=== PATIENT | male | born 1960 | race Caucasian/White ===

== ENCOUNTER 2021-02-15 03:56 | Observation (INO) | payer SELFPAY ==
[2021-02-15] MEDS ORDERED: Dexamethasone 10 MG/ML SDV IM STA (04:32)
[2021-02-15] MEDS ORDERED: Albuterol/Ipratropium 3.0-0.5 MG/3 ML Neb Soln NEB ONE ×3 (04:32→07:59)
--- NOTE | 2021-02-15 04:34 | EDM.PDOC ---
<Tarun Carrion - Last Filed: 02/15/21 06:46> ED HPI GENERAL MEDICAL PROBLEM - General Chief Complaint: Respiratory Problem Stated Complaint: SHORTNESS OF BREATH Time Seen by Provider: 02/15/21 04:31 Source of Information: Reports: Patient History Limitations: Reports: No Limitations - History of Present Illness INITIAL COMMENTS - FREE TEXT/NARRATIVE: Patient is a 60-year-old male presents today with shortness of breath. He states that for the past few days he has had some sinus issues and now spread down to his chest and he feels like there is mucus in his chest. States he has been having a hard time taking a deep breath. Denies any fever chills reports a cough that is dry. Denies any chest pain abdominal pain or nausea vomiting. He is a cigarette smoker smokes every day. Upper Chest Pain Score (Numeric/FACES): 3 - Related Data Allergies Allergy/AdvReac Type Severity Reaction Status Date / Time No Known Allergies Allergy Verified 02/15/21 04:12 Home Meds: Home Meds . [No Known Home Meds] 02/15/21 [History] Social & Family History - Tobacco Use Tobacco Use Status *Q: Never Tobacco User Second Hand Smoke Exposure: No - Recreational Drug Use Recreational Drug Use: No ED ROS GENERAL - Review of Systems Review Of Systems: See Below Constitutional: Reports: No Symptoms HEENT: Reports: No Symptoms Respiratory: Reports: No Symptoms, Shortness of Breath Cardiovascular: Reports: No Symptoms Endocrine: Reports: No Symptoms GI/Abdominal: Reports: No Symptoms : Reports: No Symptoms Musculoskeletal: Reports: No Symptoms Skin: Reports: No Symptoms Neurological: Reports: No Symptoms Psychiatric: Reports: No Symptoms Hematologic/Lymphatic: Reports: No Symptoms Immunologic: Reports: No Symptoms ED EXAM, GENERAL - Physical Exam Exam: See Below Exam Limited By: No Limitations General Appearance: Alert, WD/WN, No Apparent Distress Eye Exam: Bilateral Eye: EOMI, PERRL Head: Atraumatic, Normocephalic Respiratory/Chest: No Respiratory Distress, Wheezing Cardiovascular: Normal Peripheral Pulses, Regular Rate, Rhythm GI/Abdominal: Normal Bowel Sounds, Soft, Non-Tender Extremities: Normal Inspection Neurological: Alert, Oriented Course - Re-Assessments/Exams Free Text/Narrative Re-Assessment/Exam: 02/15/21 06:46 Given 2 neb treatments and still has wheezing. We also gave steroids will give magnesium if wheezing and respiratory status not improved patient will likely be admitted if patient respiratory status improved can be discharged home he signed around 92% on room air. Smoker. Departure - Departure Disposition: Admitted As Inpatient 68 Clinical Impression: Acute respiratory failure with hypoxia - Discharge Information Critical Care Note - Critical Care Note Total Time (mins): 45 Comments: Critical Care Procedure Note Authorized and Performed by: Dr. Carrion Total critical care time: Approximately Due to a high probability of clinically significant, life threatening deterioration, the patient required my highest level of preparedness to intervene emergently and I personally spent this critical care time directly and personally managing the patient. This critical care time included obtaining a history; examining the patient; pulse oximetry; ordering and review of studies; arranging urgent treatment with development of a management plan; evaluation of patient's response to treatment; frequent reassessment; and, discussions with other providers. This critical care time was performed to assess and manage the high probability of imminent, life-threatening deterioration that could result in multi-organ failure. It was exclusive of separately billable procedures and treating other patients and teaching time. - Assessment/Plan Plan: Patient is a 60-year-old male presents today for wheezing and shortness of breath. Patient is a cigarette smoker. Patient has wheezing on exam. Will give albuterol and steroids and reassess patient. <Miguelito Perea - Last Filed: 02/16/21 21:02> ED HPI GENERAL MEDICAL PROBLEM - History of Present Illness INITIAL COMMENTS - FREE TEXT/NARRATIVE: Patient was signed out to me by Dr. Carrion pending reevaluation at 7 AM I did reevaluate the patient and patient continued to wheeze and require supplemental oxygenation. At this time I did discuss with patient that I like him in the hospital. He was amenable to this plan. I contacted our hospitalist who was amenable to admission at this time. DISPOSITION: Patient was admitted to the hospital in stable condition Miguelito Perea M.D. Course - Vital Signs Last Recorded V/S: Last Vital Signs Temp 36.4 C 02/16/21 15:47 Pulse 101 H 02/16/21 15:47 Resp 22 H 02/16/21 15:47 BP 102/64 02/16/21 15:47 Pulse Ox 90 L 02/16/21 15:47 - Orders/Labs/Meds Orders: Medication Orders Acetaminophen (Acetaminophen 325 Mg Tab) 650 mg PO Q4H PRN PRN Reason: Pain (Mild 1-3)/fever Albuterol/Ipratropium (Albuterol/Ipratropium 3.0-0.5 Mg/3 Ml Neb Soln) 3 ml NEB Q4HRRT [facility] Last Admin: 02/16/21 17:41 Dose: Not Given Documented by: СВЕТЛАНА Admin: 02/16/21 13:32 Dose: 3 ml Documented by: СВЕТЛАНА Admin: 02/16/21 09:30 Dose: 3 ml Documented by: СВЕТЛАНА Admin: 02/16/21 09:30 Dose: Not Given Documented by: СВЕТЛАНА Admin: 02/16/21 04:12 Dose: 3 ml Documented by: Admin: 02/15/21 23:43 Dose: 3 ml Documented by: Admin: 02/15/21 17:11 Dose: 3 ml Documented by: СВЕТЛАНА Admin: 02/15/21 13:17 Dose: 3 ml Documented by: СВЕТЛАНА Benzonatate (Benzonatate 100 Mg Cap) 100 mg PO Q6H PRN PRN Reason: Cough Enoxaparin Sodium (Enoxaparin 40 Mg/0.4 Ml Syringe) 40 mg SUBCUT Q24H [facility] Last Admin: 02/16/21 09:50 Dose: 40 mg Documented by: LANETTE Cosigned by: DOROTHEA Admin: 02/15/21 10:47 Dose: 40 mg Documented by: JACKELINE Guaifenesin/Dextromethorphan (Guaifenesin/Dextromethorphan 100-10 Mg/5 Ml Soln 10 Ml Cup) 10 ml PO Q4H PRN PRN Reason: Cough Pantoprazole Sodium 40 mg/ (Sodium Chloride) 10 mls @ 300 mls/hr IV Q24H [facility] Last Admin: 02/16/21 11:53 Dose: 300 mls/hr Documented by: Infusion: 02/15/21 11:03 Dose: 300 mls/hr Documented by: Admin: 02/15/21 11:01 Dose: 300 mls/hr Documented by: JACKELINE Methylprednisolone Sodium Succinate (Methylprednisolone Sodium Succinate 40 Mg/1 Ml Sdv) 40 mg IVPUSH Q8H [facility] Last Admin: 02/16/21 13:05 Dose: 40 mg Documented by: Admin: 02/16/21 06:17 Dose: 40 mg Documented by: Admin: 02/15/21 20:26 Dose: 40 mg Documented by: DANNIELLE Nicotine (Nicotine 14 Mg/24 Hr Patch) 14 mg TRDERM DAILY [facility] Last Admin: 02/16/21 08:48 Dose: 14 mg Documented by: LANETTE Cosigned by: DOROTHEA Admin: 02/15/21 10:48 Dose: 14 mg Documented by: JACKELINE Ondansetron HCl (Ondansetron 4 Mg/2 Ml Sdv) 4 mg IVPUSH Q4H PRN PRN Reason: Nausea/Vomiting Labs: Laboratory Tests 02/15/21 02/15/21 02/15/21 Range/Units 04:00 05:12 05:12 WBC 7.84 (4.0-11.0) K/uL RBC 6.05 H (4.50-5.90) M/uL Hgb 20.0 H (13.0-17.0) g/dL Hct 57.5 H (38.0-50.0) % MCV 95.0 (80.0-98.0) fL MCH 33.1 H (27.0-32.0) pg MCHC 34.8 (31.0-37.0) g/dL RDW Std Deviation 49.5 (28.0-62.0) fl RDW Coeff of Can 14 (11.0-15.0) % Plt Count 128 L (150-400) K/uL MPV 11.20 (7.40-12.00) fL Neut % (Auto) 72.4 (48.0-80.0) % Lymph % (Auto) 16.3 (16.0-40.0) % [place] % (Auto) 10.1 (0.0-15.0) % Eos % (Auto) 0.8 (0.0-7.0) % Baso % (Auto) 0.4 (0.0-1.5) % Neut # (Auto) 5.7 (1.4-5.7) K/uL Lymph # (Auto) 1.3 (0.6-2.4) K/uL [place] # (Auto) 0.8 (0.0-0.8) K/uL Eos # (Auto) 0.1 (0.0-0.7) K/uL Baso # (Auto) 0.0 (0.0-0.1) K/uL Nucleated RBC % 0.0 /100WBC Nucleated RBCs # 0 K/uL Sodium 137 (136-148) mmol/L Potassium 4.9 (3.5-5.1) mmol/L Chloride 100 (98-107) mmol/L Carbon Dioxide 28.2 (21.0-32.0) mmol/L BUN 10 (7.0-18.0) mg/dL Creatinine 1.1 (0.8-1.3) mg/dL Est Cr Clr Drug Dosing TNP Estimated GFR (MDRD) > 60.0 ml/min Glucose 113 H (74-106) mg/dL Calcium 8.3 L (8.5-10.1) mg/dL Troponin I < 0.050 (0.000-0.056) ng/mL SARS-CoV-2 RNA (JENNIFER) NEGATIVE (NEGATIVE) Meds: Medications Generic Name Dose Route Start Last Admin Trade Name Freq PRN Reason Stop Dose Admin Acetaminophen 650 mg 02/15/21 10:31 Acetaminophen 325 Mg Tab PO Q4H PRN Pain (Mild 1-3)/fever Albuterol/Ipratropium 3 ml 02/15/21 14:00 02/16/21 17:41 Albuterol/Ipratropium 3.0-0.5 Mg/3 Ml Neb Soln NEB Not Given Q4HRRT [facility] Benzonatate 100 mg 02/15/21 10:36 Benzonatate 100 Mg Cap PO Q6H PRN Cough Enoxaparin Sodium 40 mg 02/15/21 10:30 02/16/21 09:50 Enoxaparin 40 Mg/0.4 Ml Syringe SUBCUT 40 mg Q24H [facility] Administration Guaifenesin/Dextromethorphan 10 ml 02/15/21 10:35 Guaifenesin/Dextromethorphan 100-10 Mg/5 Ml Soln 10 Ml Cup PO Q4H PRN Cough Pantoprazole Sodium 40 mg/ 10 mls @ 300 mls/hr 02/15/21 12:00 02/16/21 11:53 Sodium Chloride IV 300 mls/hr Q24H [facility] Administration Methylprednisolone Sodium Succinate 40 mg 02/15/21 21:00 02/16/21 13:05 Methylprednisolone Sodium Succinate 40 Mg/1 Ml Sdv IVPUSH 40 mg Q8H [facility] Administration Nicotine 14 mg 02/15/21 10:45 02/16/21 08:48 Nicotine 14 Mg/24 Hr Patch TRDERM 14 mg DAILY [facility] Administration Ondansetron HCl 4 mg 02/15/21 10:31 Ondansetron 4 Mg/2 Ml Sdv IVPUSH Q4H PRN Nausea/Vomiting Discontinued Medications Generic Name Dose Route Start Last Admin Trade Name Freq PRN Reason Stop Dose Admin Albuterol/Ipratropium 3 ml 02/15/21 04:32 02/15/21 05:11 Albuterol/Ipratropium 3.0-0.5 Mg/3 Ml Neb Soln NEB 02/15/21 04:33 3 ml ONETIME ONE Administration Albuterol/Ipratropium 3 ml 02/15/21 05:40 02/15/21 05:43 Albuterol/Ipratropium 3.0-0.5 Mg/3 Ml Neb Soln NEB 02/15/21 05:41 3 ml ONETIME ONE Administration Albuterol/Ipratropium 3 ml 02/15/21 07:59 02/15/21 08:04 Albuterol/Ipratropium 3.0-0.5 Mg/3 Ml Neb Soln NEB 02/15/21 08:00 3 ml ONETIME ONE Administration Dexamethasone 10 mg 02/15/21 04:32 02/15/21 05:11 Dexamethasone 10 Mg/Ml Sdv IM 02/15/21 04:33 10 mg NOW STA Administration Magnesium Sulfate Confirm 02/15/21 06:36 02/15/21 06:40 Magnesium Sulfate In Water 2 Gm/50 Ml Administered 02/15/21 06:37 Not Given Dose 50 mls @ as directed .ROUTE .STK-MED ONE Magnesium Sulfate 2 gm/ Premix 50 mls @ 12.5 mls/hr 02/15/21 06:40 02/15/21 06:40 IV 02/15/21 10:39 12.5 mls/hr ONETIME ONE Administration Lactated Ringer's 1,000 mls @ 125 mls/hr 02/15/21 10:30 02/15/21 10:49 Ringers, Lactated IV 125 mls/hr Q8H [facility] Administration Lactated Ringer's 1,000 mls @ 125 mls/hr 02/15/21 14:55 02/15/21 15:20 Ringers, Lactated IV 02/15/21 18:29 Not Given ONETIME ONE Iopamidol 100 ml 02/15/21 17:02 02/15/21 17:02 Iopamidol 755 Mg/Ml 500 Ml Multipack Bottle IVPUSH 02/15/21 17:03 100 ml ONETIME STA Administration Magnesium Sulfate 2 gm 02/15/21 06:30 02/15/21 06:40 Magnesium Sulfate (4.06 Meq/Ml) 5 Gm/10 Ml Sdv IV 02/15/21 06:31 Not Given NOW STA Sodium Phosphate 250 mg 02/16/21 16:15 02/16/21 16:42 Phosphorus #1 250 Mg Tab PO 02/16/21 16:16 250 mg ONETIME ONE Administration Departure - Departure Time of Disposition: 08:10
[2021-02-15 05:39] LABS: BLOOD UREA NITROGEN,BUN 10 mg/dL (7.0-18.0); CARBON DIOXIDE,CO2 28.2 mmol/L (21.0-32.0); CHLORIDE,CL 100 mmol/L (98-107); GLUCOSE RANDOM 113 mg/dL (74-106); POTASSIUM,K 4.9 mmol/L (3.5-5.1); SODIUM,NA 137 mmol/L (136-148)
[2021-02-15] MEDS ORDERED: Magnesium Sulfate (4.06 MEQ/ML) 5 GM/10 ML SDV IV STA (06:30)
[2021-02-15] MEDS ORDERED: Magnesium Sulfate/Water 0 ML ONE (06:36)
[2021-02-15] MEDS ORDERED: Magnesium Sulfate/Water 2 GM in Premix Bag 1 BAG IV ONE (06:40)
--- NOTE | 2021-02-15 07:25 | CR ---
INDICATION: Cough and wheezing TECHNIQUE: Chest 1 view. COMPARISON: None FINDINGS: Cardiovascular and mediastinum: Heart size and vasculature are normal in caliber and appearance. Mediastinum is within normal limits. Lungs and pleural space: Lungs are clear. No sign of infiltrate or mass. No sign of pleural effusion. No pneumothorax. Bones and soft tissues: No significant findings. IMPRESSION: Unremarkable chest. Dictated by Delgado Myles MD @ 02/15/2021 7:23:[address] Delgado Myles @ Feb 15 2021 7:23AM
--- NOTE | 2021-02-15 09:43 | CT ---
INDICATION: Hypoxia; cough and wheezing. COMPARISON: Single AP chest radiograph February 15, 2021. TECHNIQUE: CT chest with intravenous contrast; coronal and sagittal reformats. FINDINGS: No CT evidence of acute or chronic pulmonary thromboembolism. No abnormal mediastinal or hilar lymphadenopathy. No evidence of aortic aneurysm or dissection. Normal size cardiac silhouette without any evidence of pericardial effusion. No evidence of pleural effusion or chest wall pathology. Limited CT through the upper abdomen reveals diffuse fatty infiltration of the liver . Multiple small subcentimeter intra pulmonary nodules bilateral. A 6.2 mm noncalcified nodule upper lobe right lung slice 32 series 4 was 6. A 5.6 mm noncalcified nodule upper lobe right lung slice 09/23/1937. A 6.7 mm noncalcified nodular density lower lobe left lung slice 137 series 406. No evidence of pleural effusion. IMPRESSION: 1. No evidence of pulmonary thromboembolism. 2. No evidence of pulmonary infiltrates on either side. 3. Multiple subcentimeter noncalcified nodules right upper lobe and left lower lobe; the exact nature and clinical significance unclear; Followup chest CT in 3 months duration suggested. 4. Diffuse fatty infiltration of the liver. Please note that all CT scans at this facility use dose modulation, iterative reconstruction, and/or weight-based dosing when appropriate to reduce radiation dose to as low as reasonably achievable. Dictated by Master Reyes MD @ 02/15/2021 9:42:[address] Master Reyes @ Feb 15 2021 9:42AM
[2021-02-15] MEDS ORDERED: Lactated Ringers 1,000 ML IV SCH (10:30)
[2021-02-15] MEDS ORDERED: Acetaminophen 325 MG Tab PO PRN (10:31)
[2021-02-15] MEDS ORDERED: Ondansetron 4 MG/2 ML SDV IVPUSH PRN (10:31)
[2021-02-15] MEDS ORDERED: guaiFENesin/Dextromethorphan 100-10 MG/5 ML Soln 10 ML Cup PO PRN (10:35)
--- NOTE | 2021-02-15 10:35 | PCM.HP.2 ---
H&P History of Present Illness - General Date of Service: 02/15/21 Admit Problem/Dx: Admission Diagnosis/Problem Admission Diagnosis/Problem Hypoxia Source of Information: Patient History Limitations: Reports: No Limitations - History of Present Illness Initial Comments - Free Text/Narative: Patient is a 60-year-old male with past medical history of tobacco abuse, smokes 1 pack/day, 3+ years of smoking history, no other medical problems, does not follow-up with a PCP who comes in with complaints of sinus congestion as well as chest congestion. Patient states that for last few days he has been having shortness of breath and feels that he cannot take deep breaths. He also complains of wheezing. Patient states that he has no known allergies and has never had this episode before. In the ER patient received several DuoNeb treatments and received Decadron. Patient was found to be hypoxic in low 90s and started on oxygenation via nasal cannula 2 L. Patient was admitted to the hospital for further management. Chest x-ray done in the ER did not show any significant cardiopulmonary process. CTA was done as well which ruled out a PE as well as pneumonia. Troponin x2 -, patient has no chest pain or other cardiac risk factors Upper Chest Pain Score (Numeric/FACES): 3 - Related Data Allergies/Adverse Reactions: Allergies Allergy/AdvReac Type Severity Reaction Status Date / Time No Known Allergies Allergy Verified 02/15/21 04:12 Home Medications: Home Meds . [No Known Home Meds] 02/15/21 [History] Past Medical History HEENT History: Reports: Impaired Vision, Sinusitis Respiratory History: Reports: Other (See Below) Other Respiratory History: hx double pneumonia; states "pneumonia every year after sinus infection" Musculoskeletal History: Reports: Fracture Other Musculoskeletal History: Fx at elbow 30+yrs ago - Infectious Disease History Infectious Disease History: Reports: Influenza - Past Surgical History Head Surgeries/Procedures: Reports: None HEENT Surgical History: Reports: None Respiratory Surgical History: Reports: None Dermatological Surgical History: Reports: None Social & Family History - Tobacco Use Tobacco Use Status *Q: Current Every Day Tobacco User Years of Tobacco use: 40 Packs/Tins Daily: 0.5 Second Hand Smoke Exposure: Yes - Caffeine Use Caffeine Use: Reports: Coffee - Alcohol Use Days Per Week of Alcohol Use: 3 Number of Drinks Per Day: 2 Total Drinks Per Week: 6 Date of Last Drink: 02/08/21 - Recreational Drug Use Recreational Drug Use: No H&P Review of Systems - Review of Systems: Review Of Systems: See Below General: Reports: Weakness. Denies: Fever, Chills, Malaise, Fatigue HEENT: Denies: Dysphasia, Ear Pain, Eye Pain, Glasses, Headaches, Sore Throat, Vertigo Pulmonary: Reports: Shortness of Breath, Wheezing, Cough, Sputum. Denies: Pleuritic Chest Pain Cardiovascular: Reports: Dyspnea on Exertion. Denies: Chest Pain, Palpitations, Orthopnea, Edema Gastrointestinal: Denies: Abdominal Pain, Anorexia, Black Stool Genitourinary: Denies: Dysuria, Frequency, Burning Musculoskeletal: Denies: Neck Pain, Shoulder Pain, Arm Pain Skin: Denies: Cyanosis, Jaundice, Mottled Psychiatric: Denies: Confusion, Depression, Mood Lability Neurological: Denies: Confusion, Dizziness, Numbness Hematologic/Lymphatic: Denies: Anemia, Easy Bleeding, Easy Bruising Exam - Exam Exam: See Below - Vital Signs Vital Signs: Last Vital Signs Temp 35.7 C L 02/15/21 04:07 Pulse 101 H 02/15/21 07:50 Resp 18 02/15/21 07:50 BP 100/67 02/15/21 07:50 Pulse Ox 93 L 02/15/21 08:04 Weight: 75.75 kg - Exam Quality Assessment: Supplemental Oxygen General: Alert, Oriented Neck: Supple Lungs: Normal Respiratory Effort, Decreased Breath Sounds, Wheezing Cardiovascular: Regular Rate, Regular Rhythm, Normal S1, Normal S2 GI/Abdominal Exam: Normal Bowel Sounds, Soft, Non-Tender - Patient Data Lab Results Last 24 hrs: Laboratory Results - last 24 hr 02/15/21 02/15/21 02/15/21 Range/Units 04:00 05:12 05:12 WBC 7.84 (4.0-11.0) K/uL RBC 6.05 H (4.50-5.90) M/uL Hgb 20.0 H (13.0-17.0) g/dL Hct 57.5 H (38.0-50.0) % MCV 95.0 (80.0-98.0) fL MCH 33.1 H (27.0-32.0) pg MCHC 34.8 (31.0-37.0) g/dL RDW Std Deviation 49.5 (28.0-62.0) fl RDW Coeff of Can 14 (11.0-15.0) % Plt Count 128 L (150-400) K/uL MPV 11.20 (7.40-12.00) fL Neut % (Auto) 72.4 (48.0-80.0) % Lymph % (Auto) 16.3 (16.0-40.0) % [place] % (Auto) 10.1 (0.0-15.0) % Eos % (Auto) 0.8 (0.0-7.0) % Baso % (Auto) 0.4 (0.0-1.5) % Neut # (Auto) 5.7 (1.4-5.7) K/uL Lymph # (Auto) 1.3 (0.6-2.4) K/uL [place] # (Auto) 0.8 (0.0-0.8) K/uL Eos # (Auto) 0.1 (0.0-0.7) K/uL Baso # (Auto) 0.0 (0.0-0.1) K/uL Nucleated RBC % 0.0 /100WBC Nucleated RBCs # 0 K/uL Sodium 137 (136-148) mmol/L Potassium 4.9 (3.5-5.1) mmol/L Chloride 100 (98-107) mmol/L Carbon Dioxide 28.2 (21.0-32.0) mmol/L BUN 10 (7.0-18.0) mg/dL Creatinine 1.1 (0.8-1.3) mg/dL Est Cr Clr Drug Dosing TNP Estimated GFR (MDRD) > 60.0 ml/min Glucose 113 H (74-106) mg/dL Calcium 8.3 L (8.5-10.1) mg/dL Troponin I < 0.050 (0.000-0.056) ng/mL SARS-CoV-2 RNA (JENNIFER) NEGATIVE (NEGATIVE) 02/15/21 Range/Units 08:21 WBC (4.0-11.0) K/uL RBC (4.50-5.90) M/uL Hgb (13.0-17.0) g/dL Hct (38.0-50.0) % MCV (80.0-98.0) fL MCH (27.0-32.0) pg MCHC (31.0-37.0) g/dL RDW Std Deviation (28.0-62.0) fl RDW Coeff of Can (11.0-15.0) % Plt Count (150-400) K/uL MPV (7.40-12.00) fL Neut % (Auto) (48.0-80.0) % Lymph % (Auto) (16.0-40.0) % [place] % (Auto) (0.0-15.0) % Eos % (Auto) (0.0-7.0) % Baso % (Auto) (0.0-1.5) % Neut # (Auto) (1.4-5.7) K/uL Lymph # (Auto) (0.6-2.4) K/uL [place] # (Auto) (0.0-0.8) K/uL Eos # (Auto) (0.0-0.7) K/uL Baso # (Auto) (0.0-0.1) K/uL Nucleated RBC % /100WBC Nucleated RBCs # K/uL Sodium (136-148) mmol/L Potassium (3.5-5.1) mmol/L Chloride (98-107) mmol/L Carbon Dioxide (21.0-32.0) mmol/L BUN (7.0-18.0) mg/dL Creatinine (0.8-1.3) mg/dL Est Cr Clr Drug Dosing Estimated GFR (MDRD) ml/min Glucose (74-106) mg/dL Calcium (8.5-10.1) mg/dL Troponin I < 0.050 (0.000-0.056) ng/mL SARS-CoV-2 RNA (JENNIFER) (NEGATIVE) Result Diagrams: 02/15/21 05:12 02/15/21 05:12 Sepsis Event Note - Focused Exam Vital Signs: Vital Signs Temp Pulse Resp BP Pulse Ox Pulse Ox 02/15/21 08:04 93 L 02/15/21 07:50 101 H 18 100/67 92 L 02/15/21 06:45 101 H 20 92 L 02/15/21 05:43 97 20 90 L 02/15/21 04:07 35.7 C L 105 H 22 H 105/83 94 L - Problem List (1) Acute respiratory failure with hypoxia SNOMED Code(s): 52083418, 711264196 ICD Code: J96.01 - ACUTE RESPIRATORY FAILURE WITH HYPOXIA Status: Acute Current Visit: Yes (2) Smoker SNOMED Code(s): 53462408 ICD Code: F17.200 - NICOTINE DEPENDENCE, UNSPECIFIED, UNCOMPLICATED Status: Acute Current Visit: Yes Problem List Initiated/Reviewed/Updated: Yes Orders Last 24hrs: Active Orders 24 hr Category Date Time Status Admission Status [Patient Status] [ADT] Stat ADT 02/15/21 08:10 Active Ambulate [RC] ASDIRECTED Care 02/15/21 10:29 Active Antiembolic Devices [RC] PER UNIT ROUTINE Care 02/15/21 10:31 Active IS (RT) [RT Incentive Spirometry] [RC] Q2HWA Care 02/15/21 10:35 Ordered Oxygen Therapy [RC] PRN Care 02/15/21 10:29 Active Pulse Oximetry [RC] PRN Care 02/15/21 10:30 Active RT Aerosol Therapy [RC] ASDIRECTED Care 02/15/21 04:32 Active RT Aerosol Therapy [RC] ASDIRECTED Care 02/15/21 05:40 Active RT Aerosol Therapy [RC] ASDIRECTED Care 02/15/21 07:59 Active RT Aerosol Therapy [RC] ASDIRECTED Care 02/15/21 10:32 Active VTE/DVT Education [RC] PER UNIT ROUTINE Care 02/15/21 10:29 Active Vital Signs [RC] Q4H Care 02/15/21 10:29 Active Regular Diet [DIET] Diet 02/15/21 Lunch Active Acetaminophen [TylenoL] Med 02/15/21 10:31 Active 650 mg PO Q4H PRN Albuterol/Ipratropium [DuoNeb 3.0-0.5 MG/3 ML] Med 02/15/21 14:00 Ordered 3 ml NEB Q4HRRT Enoxaparin [Lovenox] Med 02/15/21 10:30 Active 40 mg SUBCUT Q24H Lactated Ringers [Ringers, Lactated] 1,000 ml Med 02/15/21 10:30 Active IV Q8H Magnesium Sulfate/Water [Magnesium Sulfate in Water 2 Med 02/15/21 06:40 Active GM/50 ML] 2 gm Premix Bag 1 bag IV ONETIME Ondansetron [Zofran] Med 02/15/21 10:31 Active 4 mg IVPUSH Q4H PRN Pantoprazole [ProTONIX IV] 40 mg Med 02/15/21 12:00 Active Sodium Chloride 0.9% [Normal Saline] 10 ml IV Q24H methylPREDNISolone Sod Succ [Solu-MEDROL] Med 02/15/21 21:00 Ordered 40 mg IVPUSH Q8H Sequential Compression Device [OM.PC] Per Unit Routine Oth 02/15/21 10:30 Ordered Resuscitation Status Routine Resus Stat 02/15/21 10:29 Ordered Medication Orders Acetaminophen (Acetaminophen 325 Mg Tab) 650 mg PO Q4H PRN PRN Reason: Pain (Mild 1-3)/fever Albuterol/Ipratropium (Albuterol/Ipratropium 3.0-0.5 Mg/3 Ml Neb Soln) 3 ml NEB Q4HRRT [facility] Enoxaparin Sodium (Enoxaparin 40 Mg/0.4 Ml Syringe) 40 mg SUBCUT Q24H [facility] Magnesium Sulfate 2 gm/ Premix 50 mls @ 12.5 mls/hr IV ONETIME ONE Stop: 02/15/21 10:39 Last Admin: 02/15/21 06:40 Dose: 12.5 mls/hr Documented by: BOOGIE Lactated Ringer's (Ringers, Lactated) 1,000 mls @ 125 mls/hr IV Q8H [facility] Pantoprazole Sodium 40 mg/ (Sodium Chloride) 10 mls @ 300 mls/hr IV Q24H [facility] Methylprednisolone Sodium Succinate (Methylprednisolone Sodium Succinate 40 Mg/1 Ml Sdv) 40 mg IVPUSH Q8H [facility] Ondansetron HCl (Ondansetron 4 Mg/2 Ml Sdv) 4 mg IVPUSH Q4H PRN PRN Reason: Nausea/Vomiting Assessment/Plan Comment:: 60-year-old male comes in for hypoxia, patient has history of smoking likely component of COPD Patient was actively wheezing in the ER which resolved after receiving several duo nebs and steroids Continue oxygenation via nasal cannula Continue duo nebs scheduled every 4 hours as well as will start patient on IV Solu-Medrol 40 mg every 8 hours We will start patient on cough syrup as needed DVT prophylaxis with Lovenox Incentive spirometry as tolerated every 2 hours Regular diet Nicotine patch Patient will need outpatient pulmonary function testing to assess for COPD given his history of smoking Anticipate 1-2 midnight stays
[2021-02-15] MEDS ORDERED: Benzonatate 100 MG Cap PO PRN (10:36)
[2021-02-15] MEDS ORDERED: Pantoprazole 40 MG Vial IV SCH (10:45)
[2021-02-15] MEDS: Enoxaparin 40 MG/0.4 ML Syringe SUBCUT SCH (10:47)
[2021-02-15] MEDS: Nicotine 14 MG/24 Hr Patch TRDERM SCH (10:48)
[2021-02-15] MEDS: Pantoprazole 40 MG in Sodium Chloride 0.9% 10 ML IV SCH (11:01)
[2021-02-15] MEDS: Albuterol/Ipratropium 3.0-0.5 MG/3 ML Neb Soln NEB SCH ×3 (13:17→23:43)
[2021-02-15] MEDS ORDERED: Lactated Ringers 1,000 ML IV ONE (14:55)
[2021-02-15] MEDS ORDERED: Iopamidol 755 MG/ML 500 ML Multipack Bottle IVPUSH STA (17:02)
[2021-02-15] MEDS: methylPREDNISolone Sodium Succinate 40 MG/1 ML SDV IVPUSH SCH (20:26)
[2021-02-16] MEDS: Albuterol/Ipratropium 3.0-0.5 MG/3 ML Neb Soln NEB SCH ×6 (04:12→23:39)
[2021-02-16] MEDS: methylPREDNISolone Sodium Succinate 40 MG/1 ML SDV IVPUSH SCH ×3 (06:17→21:37)
[2021-02-16 06:57] LABS: BLOOD UREA NITROGEN,BUN 12 mg/dL (7.0-18.0); CARBON DIOXIDE,CO2 24.7 mmol/L (21.0-32.0); CHLORIDE,CL 103 mmol/L (98-107); GLUCOSE RANDOM 219 mg/dL (74-106); POTASSIUM,K 4.3 mmol/L (3.5-5.1); SODIUM,NA 139 mmol/L (136-148)
[2021-02-16] MEDS: Nicotine 14 MG/24 Hr Patch TRDERM SCH (08:48)
[2021-02-16] MEDS: Enoxaparin 40 MG/0.4 ML Syringe SUBCUT SCH (09:50)
[2021-02-16] MEDS: Pantoprazole 40 MG in Sodium Chloride 0.9% 10 ML IV SCH (11:53)
--- NOTE | 2021-02-16 15:56 | PCM.PN ---
- General Info Date of Service: 02/16/21 Admission Dx/Problem (Free Text): Admission Diagnosis/Problem Admission Diagnosis/Problem Hypoxia Subjective Update: Patient seen and examined at bedside, resting comfortably has been weaned off the oxygen is on room air but continues to have some wheezing. Functional Status: Reports: Tolerating Diet, Ambulating, Urinating - Review of Systems General: Denies: Weakness, Fatigue, Malaise Pulmonary: Reports: Shortness of Breath, Cough. Denies: Pleuritic Chest Pain, Sputum, Hemoptysis Cardiovascular: Denies: Chest Pain, Palpitations, Dyspnea on Exertion Gastrointestinal: Denies: Abdominal Pain, Constipation, Decreased Appetite Genitourinary: Denies: Dysuria, Frequency, Burning, Pain Musculoskeletal: Denies: Neck Pain, Shoulder Pain, Arm Pain Skin: Denies: Cyanosis, Jaundice, Mottled Neurological: Denies: Confusion, Dizziness, Headache - Patient Data Vitals - Most Recent: Last Vital Signs Temp 36.4 C 02/16/21 15:47 Pulse 101 H 02/16/21 15:47 Resp 22 H 02/16/21 15:47 BP 102/64 02/16/21 15:47 Pulse Ox 90 L 02/16/21 15:47 Weight - Most Recent: 75.75 kg Lab Results Last 24 Hours: Laboratory Results - last 24 hr 02/16/21 02/16/21 Range/Units 05:33 05:33 WBC 13.95 H (4.0-11.0) K/uL RBC 5.67 (4.50-5.90) M/uL Hgb 18.4 H (13.0-17.0) g/dL Hct 54.1 H (38.0-50.0) % MCV 95.4 (80.0-98.0) fL MCH 32.5 H (27.0-32.0) pg MCHC 34.0 (31.0-37.0) g/dL RDW Std Deviation 49.3 (28.0-62.0) fl RDW Coeff of Can 14 (11.0-15.0) % Plt Count 148 L (150-400) K/uL MPV 11.90 (7.40-12.00) fL Neut % (Auto) 89.5 H (48.0-80.0) % Lymph % (Auto) 6.7 L (16.0-40.0) % [place] % (Auto) 3.7 (0.0-15.0) % Eos % (Auto) 0.0 (0.0-7.0) % Baso % (Auto) 0.1 (0.0-1.5) % Neut # (Auto) 12.5 H (1.4-5.7) K/uL Lymph # (Auto) 0.9 (0.6-2.4) K/uL [place] # (Auto) 0.5 (0.0-0.8) K/uL Eos # (Auto) 0.0 (0.0-0.7) K/uL Baso # (Auto) 0.0 (0.0-0.1) K/uL Nucleated RBC % 0.0 /100WBC Nucleated RBCs # 0 K/uL Sodium 139 (136-148) mmol/L Potassium 4.3 (3.5-5.1) mmol/L Chloride 103 (98-107) mmol/L Carbon Dioxide 24.7 (21.0-32.0) mmol/L BUN 12 (7.0-18.0) mg/dL Creatinine 0.9 (0.8-1.3) mg/dL Est Cr Clr Drug Dosing 86.56 mL/min Estimated GFR (MDRD) > 60.0 ml/min Glucose 219 H (74-106) mg/dL Calcium 8.5 (8.5-10.1) mg/dL Phosphorus 2.4 L (2.6-4.7) mg/dL Magnesium 2.1 (1.8-2.4) mg/dL Med Orders - Current: Current Medications Acetaminophen (Acetaminophen 325 Mg Tab) 650 mg PO Q4H PRN PRN Reason: Pain (Mild 1-3)/fever Albuterol/Ipratropium (Albuterol/Ipratropium 3.0-0.5 Mg/3 Ml Neb Soln) 3 ml NEB Q4HRRT [facility] Last Admin: 02/16/21 13:32 Dose: 3 ml Documented by: Benzonatate (Benzonatate 100 Mg Cap) 100 mg PO Q6H PRN PRN Reason: Cough Enoxaparin Sodium (Enoxaparin 40 Mg/0.4 Ml Syringe) 40 mg SUBCUT Q24H [facility] Last Admin: 02/16/21 09:50 Dose: 40 mg Documented by: Guaifenesin/Dextromethorphan (Guaifenesin/Dextromethorphan 100-10 Mg/5 Ml Soln 10 Ml Cup) 10 ml PO Q4H PRN PRN Reason: Cough Pantoprazole Sodium 40 mg/ (Sodium Chloride) 10 mls @ 300 mls/hr IV Q24H [facility] Last Admin: 02/16/21 11:53 Dose: 300 mls/hr Documented by: Methylprednisolone Sodium Succinate (Methylprednisolone Sodium Succinate 40 Mg/1 Ml Sdv) 40 mg IVPUSH Q8H [facility] Last Admin: 02/16/21 13:05 Dose: 40 mg Documented by: Nicotine (Nicotine 14 Mg/24 Hr Patch) 14 mg TRDERM DAILY [facility] Last Admin: 02/16/21 08:48 Dose: 14 mg Documented by: Ondansetron HCl (Ondansetron 4 Mg/2 Ml Sdv) 4 mg IVPUSH Q4H PRN PRN Reason: Nausea/Vomiting Discontinued Medications Albuterol/Ipratropium (Albuterol/Ipratropium 3.0-0.5 Mg/3 Ml Neb Soln) 3 ml NEB ONETIME ONE Stop: 02/15/21 04:33 Last Admin: 02/15/21 05:11 Dose: 3 ml Documented by: Albuterol/Ipratropium (Albuterol/Ipratropium 3.0-0.5 Mg/3 Ml Neb Soln) 3 ml NEB ONETIME ONE Stop: 02/15/21 05:41 Last Admin: 02/15/21 05:43 Dose: 3 ml Documented by: Albuterol/Ipratropium (Albuterol/Ipratropium 3.0-0.5 Mg/3 Ml Neb Soln) 3 ml NEB ONETIME ONE Stop: 02/15/21 08:00 Last Admin: 02/15/21 08:04 Dose: 3 ml Documented by: Dexamethasone (Dexamethasone 10 Mg/Ml Sdv) 10 mg IM NOW STA Stop: 02/15/21 04:33 Last Admin: 02/15/21 05:11 Dose: 10 mg Documented by: Magnesium Sulfate (Magnesium Sulfate In Water 2 Gm/50 Ml) Confirm Administered Dose 50 mls @ as directed .ROUTE .STK-MED ONE Stop: 02/15/21 06:37 Last Admin: 02/15/21 06:40 Dose: Not Given Documented by: Magnesium Sulfate 2 gm/ Premix 50 mls @ 12.5 mls/hr IV ONETIME ONE Stop: 02/15/21 10:39 Last Admin: 02/15/21 06:40 Dose: 12.5 mls/hr Documented by: Lactated Ringer's (Ringers, Lactated) 1,000 mls @ 125 mls/hr IV Q8H [facility] Last Admin: 02/15/21 10:49 Dose: 125 mls/hr Documented by: Lactated Ringer's (Ringers, Lactated) 1,000 mls @ 125 mls/hr IV ONETIME ONE Stop: 02/15/21 18:29 Last Admin: 02/15/21 15:20 Dose: Not Given Documented by: Iopamidol (Iopamidol 755 Mg/Ml 500 Ml Multipack Bottle) 100 ml IVPUSH ONETIME STA Stop: 02/15/21 17:03 Last Admin: 02/15/21 17:02 Dose: 100 ml Documented by: Magnesium Sulfate (Magnesium Sulfate (4.06 Meq/Ml) 5 Gm/10 Ml Sdv) 2 gm IV NOW STA Stop: 02/15/21 06:31 Last Admin: 02/15/21 06:40 Dose: Not Given Documented by: - Exam General: Alert, Oriented Lungs: Normal Respiratory Effort, Decreased Breath Sounds, Crackles Cardiovascular: Regular Rate, Regular Rhythm GI/Abdominal Exam: Normal Bowel Sounds, Soft, Non-Tender - Patient Data Lab Results Last 24 hrs: Laboratory Results - last 24 hr 02/16/21 02/16/21 Range/Units 05:33 05:33 WBC 13.95 H (4.0-11.0) K/uL RBC 5.67 (4.50-5.90) M/uL Hgb 18.4 H (13.0-17.0) g/dL Hct 54.1 H (38.0-50.0) % MCV 95.4 (80.0-98.0) fL MCH 32.5 H (27.0-32.0) pg MCHC 34.0 (31.0-37.0) g/dL RDW Std Deviation 49.3 (28.0-62.0) fl RDW Coeff of Can 14 (11.0-15.0) % Plt Count 148 L (150-400) K/uL MPV 11.90 (7.40-12.00) fL Neut % (Auto) 89.5 H (48.0-80.0) % Lymph % (Auto) 6.7 L (16.0-40.0) % [place] % (Auto) 3.7 (0.0-15.0) % Eos % (Auto) 0.0 (0.0-7.0) % Baso % (Auto) 0.1 (0.0-1.5) % Neut # (Auto) 12.5 H (1.4-5.7) K/uL Lymph # (Auto) 0.9 (0.6-2.4) K/uL [place] # (Auto) 0.5 (0.0-0.8) K/uL Eos # (Auto) 0.0 (0.0-0.7) K/uL Baso # (Auto) 0.0 (0.0-0.1) K/uL Nucleated RBC % 0.0 /100WBC Nucleated RBCs # 0 K/uL Sodium 139 (136-148) mmol/L Potassium 4.3 (3.5-5.1) mmol/L Chloride 103 (98-107) mmol/L Carbon Dioxide 24.7 (21.0-32.0) mmol/L BUN 12 (7.0-18.0) mg/dL Creatinine 0.9 (0.8-1.3) mg/dL Est Cr Clr Drug Dosing 86.56 mL/min Estimated GFR (MDRD) > 60.0 ml/min Glucose 219 H (74-106) mg/dL Calcium 8.5 (8.5-10.1) mg/dL Phosphorus 2.4 L (2.6-4.7) mg/dL Magnesium 2.1 (1.8-2.4) mg/dL Result Diagrams: 02/16/21 05:33 02/16/21 05:33 Sepsis Event Note - Evaluation Sepsis Screening Result: Possible Sepsis Risk - Focused Exam Vital Signs: Vital Signs Temp Pulse Resp BP BP Pulse Ox 02/16/21 15:47 36.4 C 101 H 22 H 102/64 90 L 02/16/21 11:45 35.6 C L 97 18 102/68 91 L 02/16/21 10:35 91 L 02/16/21 10:19 94 L 02/16/21 07:45 34.5 C L 90 18 105/72 93 L 02/16/21 04:05 35.9 C L 100 20 107/61 94 L - Problem List & Annotations (1) Acute respiratory failure with hypoxia SNOMED Code(s): 22493179, 154959734 Code(s): J96.01 - ACUTE RESPIRATORY FAILURE WITH HYPOXIA Status: Acute Current Visit: Yes (2) Smoker SNOMED Code(s): 32928308 Code(s): F17.200 - NICOTINE DEPENDENCE, UNSPECIFIED, UNCOMPLICATED Status: Acute Current Visit: Yes - Problem List Review Problem List Initiated/Reviewed/Updated: Yes - My Orders Last 24 Hours: My Active Orders 02/15/21 21:00 methylPREDNISolone Sod Succ [Solu-MEDROL] 40 mg IVPUSH Q8H - Plan Plan:: 60-year-old male comes in for hypoxia, patient has history of smoking likely component of COPD Patient was actively wheezing in the ER which resolved after receiving several duo nebs and steroids Patient has been weaned off the nasal cannula Continue duo nebs scheduled every 4 hours as well as will start patient on IV Solu-Medrol 40 mg every 8 hours Continue cough syrup as needed DVT prophylaxis with Lovenox Incentive spirometry as tolerated every 2 hours Regular diet Nicotine patch Patient will need outpatient pulmonary function testing to assess for COPD given his history of smoking Anticipate discharge in the a.m.
[2021-02-16] MEDS ORDERED: Phosphorus #1 250 MG Tab PO ONE (16:15)
[2021-02-17] MEDS: Albuterol/Ipratropium 3.0-0.5 MG/3 ML Neb Soln NEB SCH ×3 (05:14→09:40)
[2021-02-17] MEDS: methylPREDNISolone Sodium Succinate 40 MG/1 ML SDV IVPUSH SCH ×2 (05:31→12:07)
[2021-02-17] MEDS: Nicotine 14 MG/24 Hr Patch TRDERM SCH (09:14)
[2021-02-17] MEDS: Enoxaparin 40 MG/0.4 ML Syringe SUBCUT SCH (10:00)
[2021-02-17] MEDS: Pantoprazole 40 MG in Sodium Chloride 0.9% 10 ML IV SCH (12:01)
--- NOTE | 2021-02-17 13:37 | PCM.DCSUM1 ---
Discharge Summary - Hospital Course Free Text/Narrative:: Patient is a 60-year-old male with past medical history of tobacco abuse, smokes 1 pack/day, 3+ years of smoking history, no other medical problems, does not follow-up with a PCP who comes in with complaints of sinus congestion as well as chest congestion. Patient states that for last few days he has been having shortness of breath and feels that he cannot take deep breaths. He also complains of wheezing. Patient states that he has no known allergies and has never had this episode before. In the ER patient received several DuoNeb treatments and received Decadron. Patient was found to be hypoxic in low 90s and started on oxygenation via nasal cannula 2 L. Patient was admitted to the hospital for further management. Chest x-ray done in the ER did not show any significant cardiopulmonary process. CTA was done as well which ruled out a PE as well as pneumonia. Troponin x2 -, patient has no chest pain or other cardiac risk factors. Patient was admitted for further management, started on scheduled IV steroids, DuoNebs, guaifenesin, Incentive spirometry, and oxygen for support. Patient was slowly weaned off the oxygen, and slowly his breathung improved. He was eventually discharged on short course of oral steroids, with recommendations to quit smoking and fu with pcp, referral to returning officer was made as well for suspected underlying copd work up. Diagnosis: Stroke: No - Discharge Data Discharge Date: 02/17/21 Discharge Disposition: Home, Self-Care 01 Condition: Fair - Referral to Home Health Primary Care Physician: PCP None - Discharge Diagnosis/Problem(s) (1) Acute respiratory failure with hypoxia SNOMED Code(s): 44980921, 655097321 ICD Code: J96.01 - ACUTE RESPIRATORY FAILURE WITH HYPOXIA Status: Acute (2) Smoker SNOMED Code(s): 55442298 ICD Code: F17.200 - NICOTINE DEPENDENCE, UNSPECIFIED, UNCOMPLICATED Status: Acute - Patient Instructions Diet: Usual Diet as Tolerated Activity: As Tolerated Driving: May Drive Today Showering/Bathing: May Shower Notify Provider of: Fever, Increased Pain, Swelling and Redness, Drainage, Nausea and/or Vomiting - Discharge Plan *PRESCRIPTION DRUG MONITORING PROGRAM REVIEWED*: No *COPY OF PRESCRIPTION DRUG MONITORING REPORT IN PATIENT ANA CRISTINA: No Prescriptions/Med Rec: Albuterol Sulfate [Albuterol Sulfate Hfa] 1 puff IH Q6H PRN #1 inhaler PRN Reason: Shortness Of Breath Nicotine [Habitrol] 14 mg TRDERM DAILY #15 patch predniSONE [Prednisone] 40 mg PO DAILY 5 Days #10 tablet Dextromethorphan/guaiFENesin [Robitussin DM] 10 ml PO Q4H PRN #1 bottle PRN Reason: Cough Home Medications: Home Meds Albuterol Sulfate [Albuterol Sulfate Hfa] 1 puff IH Q6H PRN #1 inhaler 02/17/21 [Rx] Dextromethorphan/guaiFENesin [Robitussin DM] 10 ml PO Q4H PRN #1 bottle 02/17/21 [Rx] Nicotine [Habitrol] 14 mg TRDERM DAILY #15 patch 02/17/21 [Rx] predniSONE [Prednisone] 40 mg PO DAILY 5 Days #10 tablet 02/17/21 [Rx] Patient Handouts: Steps to Quit Smoking, [id number], Managing the Challenge of Quitting Smoking, Dextromethorphan; Guaifenesin oral solution, Albuterol inhalation aerosol, Nicotine skin patches, Prednisone tablets Referrals: Juan Portillo MD [Resident] - 02/26/21 2:30 pm - Discharge Summary/Plan Comment DC Time >30 min.: No Total # of Minutes for Discharge Time: 20 - Patient Data Vitals - Most Recent: Last Vital Signs Temp 36.3 C 02/17/21 11:00 Pulse 96 02/17/21 11:00 Resp 26 H 02/17/21 11:00 BP 116/75 02/17/21 11:00 Pulse Ox 92 L 02/17/21 11:00 Weight - Most Recent: 75.75 kg I&O - Last 24 hours: Intake & Output 02/16/21 02/17/21 02/17/21 22:59 06:59 14:59 Intake Total 960 Balance 960 Lab Results - Last 24 hrs: Laboratory Results - last 24 hr 02/17/21 Range/Units 05:05 WBC 28.94 H (4.0-11.0) K/uL RBC 5.68 (4.50-5.90) M/uL Hgb 18.3 H (13.0-17.0) g/dL Hct 54.8 H (38.0-50.0) % MCV 96.5 (80.0-98.0) fL MCH 32.2 H (27.0-32.0) pg MCHC 33.4 (31.0-37.0) g/dL RDW Std Deviation 51.1 (28.0-62.0) fl RDW Coeff of Can 15 (11.0-15.0) % Plt Count 170 (150-400) K/uL MPV 11.80 (7.40-12.00) fL Neut % (Auto) 91.9 H (48.0-80.0) % Lymph % (Auto) 4.7 L (16.0-40.0) % [place] % (Auto) 3.3 (0.0-15.0) % Eos % (Auto) 0.0 (0.0-7.0) % Baso % (Auto) 0.1 (0.0-1.5) % Neut # (Auto) 26.6 H (1.4-5.7) K/uL Lymph # (Auto) 1.4 (0.6-2.4) K/uL [place] # (Auto) 1.0 H (0.0-0.8) K/uL Eos # (Auto) 0.0 (0.0-0.7) K/uL Baso # (Auto) 0.0 (0.0-0.1) K/uL Nucleated RBC % 0.3 /100WBC Nucleated RBCs # 0 K/uL Med Orders - Current: Current Medications Acetaminophen (Acetaminophen 325 Mg Tab) 650 mg PO Q4H PRN PRN Reason: Pain (Mild 1-3)/fever Albuterol/Ipratropium (Albuterol/Ipratropium 3.0-0.5 Mg/3 Ml Neb Soln) 3 ml NEB Q4HRRT [facility] Last Admin: 02/17/21 09:40 Dose: 3 ml Documented by: Benzonatate (Benzonatate 100 Mg Cap) 100 mg PO Q6H PRN PRN Reason: Cough Enoxaparin Sodium (Enoxaparin 40 Mg/0.4 Ml Syringe) 40 mg SUBCUT Q24H [facility] Last Admin: 02/17/21 10:00 Dose: 40 mg Documented by: Guaifenesin/Dextromethorphan (Guaifenesin/Dextromethorphan 100-10 Mg/5 Ml Soln 10 Ml Cup) 10 ml PO Q4H PRN PRN Reason: Cough Pantoprazole Sodium 40 mg/ (Sodium Chloride) 10 mls @ 300 mls/hr IV Q24H [facility] Last Infusion: 02/17/21 12:10 Dose: Infused Documented by: Methylprednisolone Sodium Succinate (Methylprednisolone Sodium Succinate 40 Mg/1 Ml Sdv) 40 mg IVPUSH Q8H [facility] Last Admin: 02/17/21 12:07 Dose: 40 mg Documented by: Nicotine (Nicotine 14 Mg/24 Hr Patch) 14 mg TRDERM DAILY [facility] Last Admin: 02/17/21 09:14 Dose: 14 mg Documented by: Ondansetron HCl (Ondansetron 4 Mg/2 Ml Sdv) 4 mg IVPUSH Q4H PRN PRN Reason: Nausea/Vomiting Discontinued Medications Albuterol/Ipratropium (Albuterol/Ipratropium 3.0-0.5 Mg/3 Ml Neb Soln) 3 ml NEB ONETIME ONE Stop: 02/15/21 04:33 Last Admin: 02/15/21 05:11 Dose: 3 ml Documented by: Albuterol/Ipratropium (Albuterol/Ipratropium 3.0-0.5 Mg/3 Ml Neb Soln) 3 ml NEB ONETIME ONE Stop: 02/15/21 05:41 Last Admin: 02/15/21 05:43 Dose: 3 ml Documented by: Albuterol/Ipratropium (Albuterol/Ipratropium 3.0-0.5 Mg/3 Ml Neb Soln) 3 ml NEB ONETIME ONE Stop: 02/15/21 08:00 Last Admin: 02/15/21 08:04 Dose: 3 ml Documented by: Dexamethasone (Dexamethasone 10 Mg/Ml Sdv) 10 mg IM NOW STA Stop: 02/15/21 04:33 Last Admin: 02/15/21 05:11 Dose: 10 mg Documented by: Magnesium Sulfate (Magnesium Sulfate In Water 2 Gm/50 Ml) Confirm Administered Dose 50 mls @ as directed .ROUTE .STK-MED ONE Stop: 02/15/21 06:37 Last Admin: 02/15/21 06:40 Dose: Not Given Documented by: Magnesium Sulfate 2 gm/ Premix 50 mls @ 12.5 mls/hr IV ONETIME ONE Stop: 02/15/21 10:39 Last Admin: 02/15/21 06:40 Dose: 12.5 mls/hr Documented by: Lactated Ringer's (Ringers, Lactated) 1,000 mls @ 125 mls/hr IV Q8H [facility] Last Admin: 02/15/21 10:49 Dose: 125 mls/hr Documented by: Lactated Ringer's (Ringers, Lactated) 1,000 mls @ 125 mls/hr IV ONETIME ONE Stop: 02/15/21 18:29 Last Admin: 02/15/21 15:20 Dose: Not Given Documented by: Iopamidol (Iopamidol 755 Mg/Ml 500 Ml Multipack Bottle) 100 ml IVPUSH ONETIME STA Stop: 02/15/21 17:03 Last Admin: 02/15/21 17:02 Dose: 100 ml Documented by: Magnesium Sulfate (Magnesium Sulfate (4.06 Meq/Ml) 5 Gm/10 Ml Sdv) 2 gm IV NOW STA Stop: 02/15/21 06:31 Last Admin: 02/15/21 06:40 Dose: Not Given Documented by: Sodium Phosphate (Phosphorus #1 250 Mg Tab) 250 mg PO ONETIME ONE Stop: 02/16/21 16:16 Last Admin: 02/16/21 16:42 Dose: 250 mg Documented by:
--- NOTE | 2021-02-20 20:58 | PCM.EKG ---
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 Carrion ER physician, EKG wa s again interpreted by me after patient was admitted to [facility]..
== END 2021-02-17 14:10 | disposition home or self-care (01) ==
LOC: MW.ED 03:56 → MW.MS 08:04
PROVIDERS: ADMIT Student in an Organized Health Care Education/Training Program; ATTEND Student in an Organized Health Care Education/Training Program
DX: J96.01 Acute respiratory failure with hypoxia (principal); F17.210 Nicotine dependence, cigarettes, uncomplicated; Z20.822 Contact with and (suspected) exposure to COVID-19; Z87.01 Personal history of pneumonia (recurrent); Z79.899 Other long term (current) drug therapy
CPT/HCPCS: 36415; 71045; 71275; 80048; 83735; 84100; 84484; 85025; 87635; 93005; 94640; 96365; 96366; 96372; 96375; 96376; 99291; A9270; C9113; G0378; J1100; J1650; J2920; J3475; J7120; Q9967; J7620-GY; U0002